=== PATIENT | female | born 2000 | race African-American/Black ===

== ENCOUNTER 2022-10-25 09:48 | Emergency (ER) | payer SELFPAY ==
[2022-10-25 10:12] LABS: Bilirubin Neg (Negative); Blood, Urine 250 (Negative); Clarity Cloudy (Clear); Glucose, Urine (Dipstick) Normal (Negative); Ketone, Urine Negative (Negative); Leukocyte 500 (Negative); Nitrite Negative (Negative); Protein, Urine (Dipstick) Negative (Neg-Trace); Specific Gravity, Urine 1.015 (1.005-1.030); Urobilinogen Normal mg/dL (Less than 2)
[2022-10-25 10:20] LABS: Pregnancy Test - Urine (BHCG) Negative (Negative); Pregu Control Background? CLEAR/WHITE (CLR/WHITE); Pregu Control Bar Appear? YES (CONTROL BAR); Specific Gravity 1.015 (1.002-1.036)
[2022-10-25 10:45] LABS: Squamous Epithelial 21-50 HPF (0-3)
[2022-10-25 10:46] LABS: Bacteria/HPF 2+ HPF (None Seen)
[2022-10-25] MEDS ORDERED: cefTRIAXone\\ROCEPHIN 500 MG VIAL ONE (11:31)
[2022-10-25] MEDS ORDERED: Sterile Water 10 ML ONE (11:31)
== END 2022-10-25 11:45 | disposition home or self-care (01) ==
LOC: CSHERS 09:48
DX: N89.8 Other specified noninflammatory disorders of vagina (principal); Z20.2 Contact with and (suspected) exposure to infections with a predominantly sexual mode of transmission
CPT/HCPCS: 81003; 81015; 81025; 87086; 87804; 96372; 99283; J0696

== ENCOUNTER 2023-08-05 09:44 | Emergency (ER) | payer OTHER, SELFPAY ==
[2023-08-05] MEDS ORDERED: Ketorolac Tromethamine 30 MG/ML VIAL ONE (10:02)
== END 2023-08-05 10:20 | disposition home or self-care (01) ==
LOC: CSHERS 09:44
DX: S16.1XXA Strain of muscle, fascia and tendon at neck level, initial encounter (principal); V89.2XXA Person injured in unspecified motor-vehicle accident, traffic, initial encounter
CPT/HCPCS: 96372; 99283; J1885

== ENCOUNTER 2023-09-11 18:41 | Emergency (ER) | payer SELFPAY ==
[2023-09-11] MEDS ORDERED: Ondansetron ODT 4 MG TAB ONE (20:00)
[2023-09-11] MEDS ORDERED: Ketorolac Tromethamine 30 MG/ML VIAL ONE (20:50)
[2023-09-11 21:14] LABS: #Basophils 0.1 10x3/uL (0.0-0.2); #Monocytes 0.7 10x3/uL (0.0-1.1); #Neutrophils 4.2 10x3/uL (1.5-8.4); %Basophils 0.6 % (0.0-2.0); %Eosinophils 0.2 % (0.0-6.0); %Lymphocytes 42.9 % (18.0-47.0); %Monocytes 7.8 % (0.0-10.0); %Neutrophils 48.4 % (40.0-75.0); Hematocrit 42.5 % (34.9-44.5); Hemoglobin 14.9 g/dL (12.0-15.5); Mean Corpuscular HGB CONC 35.1 g/dL (32.0-36.0); Mean Corpuscular Hemoglobin 31.8 pg (27.0-33.0); Mean Corpuscular Volume 90.6 fl (81.6-98.3); Mean Platelet Volume 10.2 fl (7.4-10.4); Platelet Count 234 10x3/uL (150-450); RBC Distribution Width 12.5 % (11.5-14.5); Red Blood Cell (RBC) Count 4.69 10x6/uL (3.90-5.03); White Blood Cell (WBC) Count 8.6 10x3/uL (3.5-10.5)
[2023-09-11 21:23] LABS: BHCG - Serum Negative (NEGATIVE); Pregs Control Background? CLEAR/WHITE (CLR/WHITE); Pregs Control Bar Appear? YES (CONTROL BAR)
[2023-09-11 21:26] LABS: ALT (SGPT) 20 U/L (8-55); AST (SGOT) 19 U/L (5-34); Albumin 4.7 g/dL (3.5-5.0); Alkaline Phosphatase 54 U/L (40-110); Anion Gap 19 mmol/L (10-20); BUN (Urea Nitrogen) 15 mg/dL (7.0-18.7); Bilirubin, Total 1.4 mg/dL (0.2-1.2); Calc. Creatinine Clearance 0 mL/min (70-130); Calcium 9.7 mg/dL (7.8-10.44); Carbon Dioxide 23 mmol/L (22-29); Chloride 100 mmol/L (98-107); Estimated GFR 95; Globulin 3.5 g/dL (2.4-3.5); Glucose 83 mg/dL (70-105); Potassium 3.9 mmol/L (3.5-5.1); Protein, Total 8.2 g/dL (6.0-8.3); Sodium 138 mmol/L (136-145)
[2023-09-11 21:41] LABS: Lipase Less than 4 U/L (8-78)
[2023-09-11 22:47] LABS: Bilirubin Neg (Negative); Blood, Urine 25 (Negative); Clarity Cloudy (Clear); Glucose, Urine (Dipstick) Normal (Negative); Ketone, Urine 150 mg/dL (Negative); Leukocyte 500 (Negative); Nitrite Negative (Negative); Protein, Urine (Dipstick) 30 mg/dl (Neg-Trace); Specific Gravity, Urine 1.025 (1.005-1.030)
[2023-09-11 23:00] LABS: Bacteria/HPF 1+ HPF (None Seen); CAUTI Indications for Culture Dysuria,urgency,freq; Mucous/LPF 1+ LPF (<2+); RBC/HPF 0-3 HPF (0-3)
[2023-09-11 23:01] LABS: Urine Culture Reflex No No
== END 2023-09-11 23:05 | disposition home or self-care (01) ==
LOC: CSHERS 18:41
DX: N39.0 Urinary tract infection, site not specified (principal)
CPT/HCPCS: 76705; 80053; 81001; 83690; 84703; 85025; 96361; 96374; J1885; Q0162

== ENCOUNTER 2024-02-15 21:33 | Emergency (ER) | payer SELFPAY | END 2024-02-15 22:59 | disposition home or self-care (01) | LOC: CSHERS 21:33 | DX: X58.XXXD Exposure to other specified factors, subsequent encounter (principal); T19.2XXD Foreign body in vulva and vagina, subsequent encounter | CPT/HCPCS: 99283 ==